=== PATIENT | male | born 1965 | race Two or more races ===

== ENCOUNTER 2018-12-16 09:44 | Outpatient (CLI) | payer OTHER | END 2018-12-16 16:40 | disposition home or self-care (01) | LOC: TOM 09:44 | DX: K40.90 Unilateral inguinal hernia, without obstruction or gangrene, not specified as recurrent (principal); R10.30 Lower abdominal pain, unspecified ==

== ENCOUNTER 2019-02-10 06:20 | Day surgery (SDC) | payer OTHER ==
[2019-02-10] MEDS ORDERED: ULTRACET PO (12:54)
[2019-02-10] MEDS ORDERED: ZANTAC300 MG PO (12:55)
== END 2019-02-10 17:00 | disposition home or self-care (01) ==
LOC: CIR.AMB 06:20
DX: K40.90 Unilateral inguinal hernia, without obstruction or gangrene, not specified as recurrent (principal)